=== PATIENT | male | born 1965 | race African-American/Black ===

== ENCOUNTER 2019-04-06 22:15 | Emergency (ER) | payer OTHER ==
[~2019-04-06] VITALS: Ht 175.3 cm; Wt 65.8 kg
[2019-04-06 22:53] LABS: ABSOLUTE NEUTROPHILS 3.1 thou/uL (1.4-8.2); BASOPHILS 1.3 % (0.0-2.0); EOSINOPHILS 7.4 % (0.0-3.0); HEMATOCRIT 38.2 % (42.0-52.0); HEMOGLOBIN 12.9 gm/dL (14.0-18.0); MCH 31.8 pg (26.0-34.0); MCHC 33.9 g/dL (28.0-37.0); MCV 93.7 fL (80.0-100.0); MONOCYTES 10.8 % (1.0-8.0); PLATELET COUNT 191 thou/uL (150-400); POLYS 43.5 % (36.0-66.0); RBC 4.07 mil/uL (4.50-6.00); RDW 12.9 % (10.5-14.5); WBC 7.1 thou/uL (4.0-11.0)
[2019-04-06 23:01] LABS: ANION GAP 10 mmol/L (7-16); BUN 14 mg/dL (7-18); CALCIUM 8.3 mg/dL (8.5-10.1); CHLORIDE 102 mmol/L (98-107); CO2 27 mmol/L (21-32); GLUCOSE 111 mg/dL (74-106); POTASSIUM 3.4 mmol/L (3.5-5.1); SODIUM 139 mmol/L (136-145)
[2019-04-06 23:11] LABS: ALBUMIN 3.3 g/dL (3.4-5.0); SGOT 81 U/L (15-37); SGPT 47 U/L (30-65); TOTAL BILIRUBIN 0.4 mg/dL (<0.1-1.0); TOTAL PROTEIN 7.8 g/dL (6.4-8.2); TROPONIN-I <0.06 ng/mL (<0.06)
[2019-04-07 02:11] VITALS: BP 120/70
--- NOTE | 2019-04-07 10:20 | EKG ---
[address] [address] [place] [address] ELECTROCARDIOGRAM REPORT Name: DEL FLOWERS Room #: [facility] Luther#: [id number] Admission: 04/06/19 Attend Phys: Discharge: 04/07/19 Date of : 69 Report #: [id number] THIS REPORT FOR: //name// [facility] ED Test Date: 2019-04-06 Test Time: 22:20:03 Pat Name: DEL FLOWERS Department: Room: Gender: Medical Research Assistant: : [id number] Requested By: Antwan Feng Order Number: [id number] MD: Luis E Juarez Measurements Intervals [place] Rate: 83 P: 85 [place]: 116 QRS: 41 QRSD: 97 T: 87 QT: 388 QTc: 456 Interpretive Statements Sinus rhythm Borderline short [place] interval Probable left atrial enlargement Left ventricular hypertrophy No previous ECG available for comparison Electronically Signed On 04-07-2019 10:20:12 CDT by Luis E Juarez [email or web address] <ELECTRONICALLY SIGNED> By: Luis E Juarez MD 04/07/19 1020 2220 2220 Luis E Juarez MD /EPI
== END 2019-04-07 02:12 | disposition home or self-care (01) ==
LOC: ER 22:15
PROVIDERS: Emergency Medicine
DX: R07.89 Other chest pain (principal); F17.210 Nicotine dependence, cigarettes, uncomplicated; Z88.6 Allergy status to analgesic agent; Z88.1 Allergy status to other antibiotic agents; Z59.0 Homelessness